=== PATIENT | male | born 1965 | race Caucasian/White ===

== ENCOUNTER 2018-07-30 19:46 | Observation (INO) | payer OTHER ==
[2018-07-30] MEDS ORDERED: NS 1,000 ML IV ONE (19:53)
[2018-07-30 20:01] LABS: PLATELET COUNT 253 10^3/uL (150-400)
--- NOTE | 2018-07-30 20:08 | EDPHY ---
H & P Time Seen by Provider: 07/30/18 19:46 Constitutional: Initial Vital Signs Temperature (C) 36.3 C 07/30/18 19:49 Heart Rate 59 L 07/30/18 19:49 Respiratory Rate 18 07/30/18 19:49 Blood Pressure 115/78 07/30/18 19:49 O2 Sat (%) 96 07/30/18 19:49 O2 Delivery Mode Room Air Allergies/Adverse Reactions: No Known Allergies Allergy (Unverified 07/30/18 19:52) Home Medications: Medication Instructions Recorded Advair 100/50 (*) 07/30/18 Proair Hfa 07/30/18 Medical Decision Making Procedures: Procedure: Laceration repair. Verbal consent was obtained from the patient. The 4 cm laceration on the left parieto-occipital region was anesthetized in the usual fashion. The wound was irrigated, draped and explored to its base with a gloved finger. There were no deep structures involved. No tendon injury was identified. The wound was repaired with 8 cookie. The wound repair was simple. The procedure was performed by myself. (Raymon Lopez) ED Course/Re-evaluation: CHIEF COMPLAINT: Cardiac Alert, syncope HISTORY OF PRESENT ILLNESS: The patient is a 53 y/o male with a history of asthma who arrives emergently via EMS as a Cardiac Alert. He reports he had not eaten all day and began to feel mildly lightheaded. He went to [employer] to get food and while standing in line his lightheadedness worsened significantly and he lost consciousness striking his head as he fell. This occurred about 30 minutes prior to arrival here. He was alert and oriented upon EMS arrival, though still lightheaded. He denies chest pain, chest pressure, dyspnea, nausea , vomiting at any point. He exercises regularly including this morning and did not have symptoms at that time. No recent illness or trauma. No history of cardiac disease. REVIEW OF SYSTEMS: A 10 point review of systems was performed and is negative with the exception of the elements mentioned in the history of present illness. PHYSICAL EXAM: HR, BP, O2 Sat, RR. Temp noted General Appearance: Alert, well hydrated, appropriate, pale. Head: Atraumatic without scalp tenderness or obvious injury Eyes: Pupils equal, round, reactive to light and accommodation, EOMI, no trauma , no injection. Nose: Atraumatic, no rhinorrhea, clear. Throat:Mucus membranes moist. Neck: Supple, non-tender, no lymphadenopathy. Respiratory: No retractions, no distress, no wheezes, and no accessory muscle use. Lungs are clear to auscultation bilaterally. Cardiovascular: Regular rate and rhythm, no murmurs, rubs, or gallops. Good capillary refill all extremities. Gastrointestinal: Abdomen is soft, non-tender, non-distended, no masses, no rebound, no guarding, no peritoneal signs. Musculoskeletal: Normal active ROM of all extremities, atraumatic. Neurological: Alert, appropriate, and interactive. The patient has non-focal cranial nerves, motor, sensory, and cerebellar exam. Skin: No rashes, good turgor, no nodules on palpation. PAST MEDICAL HISTORY: Asthma - Advair, albuterol PAST SURGICAL HISTORY: Denies SOCIAL HISTORY: Exercises regularly. Lives in [place]. . DIAGNOSTICS/PROCEDURES/CRITICAL CARE TIME: The 12 lead EKG was interpreted by myself. Sinus mechanism. Diffuse ST elevation. OK depression in inferior leads. See hard copy and/or "tracemaster" electronic copy for interpretation. Head CT: pending at time of shift change. Echocardiogram: Preliminary read is negative. DIFFERENTIAL DIAGNOSIS: The differential diagnosis for the patient's syncope included but was not limited to vasovagal syncope, arrhythmia, dehydration, cardiogenic causes, neurogenic causes, and blood loss. MEDICAL DECISION MAKIN: Met EMS upon arrival and took report. This is a normally healthy and physically active 53 y/o male with a history of asthma who presents as a Cardiac Alert after a syncopal episode this evening. He describes working out this morning with no symptoms, but also not eating much throughout the day. He was lightheaded prior to syncopal episode, which sounds more consistent with vasovagal syncope. He had no chest pain or pressure, dyspnea, or nausea at any point. Plan for EKG, IV, labs, and head CT. EKG shows OK depression in inferior leads and diffuse ST elevation, which could represent pericarditis, but he does not have any chest pain or pressure. 1949: Consulted with Dr. Joshua, firer automatic stoker. Downgraded Cardiac Alert. 1957: Dr. Joshua, firer automatic stoker, at bedside. He's ordered an echocardiogram for further evaluation as well. Normal troponin. Spoke with hospitalist service. Dr. Beyer accepts admission for syncope. Patient care signed out to Dr. Chu at shift change pending head CT and lab results. (Chepe Woods) - Data Points Laboratory Results: Laboratory Results 07/30/18 19:54 07/30/18 19:54 07/30/18 07/30/18 07/30/18 19:54 19:54 19:51 WBC 8.92 10^3/uL 10^3/uL (3.80-9.50) RBC 5.11 10^6/uL 10^6/uL (4.40-6.38) Hgb 15.5 g/dL g/dL (13.7-17.5) Hct 43.8 % % (40.0-51.0) MCV 85.7 fL fL (81.5-99.8) MCH 30.3 pg pg (27.9-34.1) MCHC 35.4 g/dL g/dL (32.4-36.7) RDW 12.0 % % (11.5-15.2) Plt Count 253 10^3/uL 10^3/uL (150-400) MPV 9.7 fL fL (8.7-11.7) Neut % (Auto) 55.0 % % (39.3-74.2) Lymph % (Auto) 35.4 % % (15.0-45.0) [place] % (Auto) 5.9 % % (4.5-13.0) Eos % (Auto) 2.7 % % (0.6-7.6) Baso % (Auto) 0.8 % % (0.3-1.7) Nucleat RBC Rel Count 0.0 % % (0.0-0.2) Absolute Neuts (auto) 4.90 10^3/uL 10^3/uL (1.70-6.50) Absolute Lymphs (auto) 3.16 10^3/uL H 10^3/uL (1.00-3.00) Absolute Monos (auto) 0.53 10^3/uL 10^3/uL (0.30-0.80) Absolute Eos (auto) 0.24 10^3/uL 10^3/uL (0.03-0.40) Absolute Basos (auto) 0.07 10^3/uL 10^3/uL (0.02-0.10) Absolute Nucleated RBC 0.00 10^3/uL 10^3/uL (0-0.01) Immature Gran % 0.2 % % (0.0-1.1) Immature Gran # 0.02 10^3/uL 10^3/uL (0.00-0.10) Sodium 138 mEq/L mEq/L (135-145) Potassium 3.7 mEq/L mEq/L (3.3-5.0) Chloride 103 mEq/L mEq/L (97-110) Carbon Dioxide 24 mEq/l mEq/l (22-31) Anion Gap 11 mEq/L mEq/L (6-14) BUN 20 mg/dL mg/dL (7-23) Creatinine 1.2 mg/dL mg/dL (0.7-1.3) Estimated GFR > 60 Glucose 133 mg/dL H mg/dL (70-100) Calcium 9.5 mg/dL mg/dL (8.5-10.4) POC Troponin I 0.01 ng/mL ng/mL (0.00-0.08) Medications Given: Discontinued Medications Sodium Chloride (Ns) 1,000 mls @ 0 mls/hr IV ONCE ONE PRN Reason: Wide Open Stop: 07/30/18 19:54 Last Admin: 07/30/18 19:54 Dose: 1,000 mls Point of Care Test Results: Chemistry 07/30/18 19:51 POC Troponin I 0.01 ng/mL ng/mL (0.00-0.08) Departure - Departure Disposition: [facility] Inpatient Acute Clinical Impression: Syncope Qualifiers: Syncope type: unspecified Qualified Code(s): R55 - Syncope and collapse Condition: Fair Report Scribed for: Chepe Woods Report Scribed by: Joana Rico Date of Report: 07/30/18 Time of Report: 20:14
--- NOTE | 2018-07-30 20:29 | ECHO ---
[email or web address] [address] [address] Main: [phone] Fax: [email or web address] Echocardiogram Name: BARBARA RODRIGUEZ MR#: [id number] Study Date: 07/30/2018 Study Time: 08:01 PM Date of : 1965 Age: 53 year(s) Height: 185.4 cm (73 in.) Weight: 79.38 kg (175 lb.) BSA: 2.03 m2 Gender: Male Examination: Echo Indication: Cardiac: syncope Image Quality: Contrast: Requested by: Chepe Woods BP: 124 mmHg/80 mmHg Heart Rate: Rhythm: Normal sinus rhythm Indication: Cardiac: syncope Procedure Staff Php Architect: Victorino Santana RDCS Reading Physician: Sylvain Joshua MD Requesting Provider: Conclusions: Normal global systolic LV function. The ejection fraction is estimated to be 65-70 %. The mitral valve is normal in appearance and function. The aortic valve is normal in appearance and function. No pericardial effusion. Measurements: Chambers Valvular Assessment AV/MV Valvular Assessment TV/PV Normal Normal Normal Name Value Range Name Value Range Name Value Range IVSd (2D): 0.9 cm (0.6 cm-1.1 AV Vmax: 1.22 m/s (1 m/s-1.7 TR Vmax: 2.55 mm/s ( - ) cm) m/s) TR PGmax: 26 mmHg ( - ) LVDd (2D): 4.3 cm (4.2 cm-5.9 AV maxP mmHg ( - ) syst. PAP: 31 mmHg ( - ) cm) LVOT Vmax: 1.13 m/s (0.7 m/s-1.1 PV Vmax: 0.65 m/s (0.6 m/s-0.9 LVDs (2D): 2.7 cm (2.1 cm-4 m/s) m/s) cm) MV E Vmax: 0.74 m/s ( - ) PV PGmax: 2 mmHg ( - ) LVPWd (2D): 1.1 cm (0.6 cm-1 MV A Vmax: 0.38 m/s ( - ) cm) MV E/A: 1.95 ( - ) Visual EF: 70 % EF Range: 65-70 % Continued Measurements: Chambers Valvular Assessment AV/MV Valvular Assessment TV/PV Name Value Name Value Name Value LADs Lon.3 cm MV E/E' Septal: 9.00 CVP (est.): 5 mmHg LA Area: 15.9 cm2 MV E/E' Lateral: 5.60 LA Volume: 47 ml LA Volume Index: 23.2 ml/m2 Patient: BARBARA RODRIGUEZ Study Date: 07/30/2018 Page 1 of 2 08:01 PM Findings: Left Ventricle: Normal size left ventricle. No LV hypertrophy. Normal global systolic LV function. The ejection fraction is estimated to be 65-70 %. The ejection fraction is visually estimated to be 70 %. No regional wall motion abnormality. Normal diastolic LV function. Right Ventricle: Normal size right ventricle. Left Atrium: The left atrium is normal in size. Right Atrium: The right atrium is normal in size. Mitral Valve: The mitral valve is normal in appearance and function. Aortic Valve: The aortic valve is normal in appearance and function. Tricuspid Valve: The tricuspid valve is normal in appearance and function. Pulmonic Valve: The pulmonic valve is normal in appearance and function. Aorta: The aorta is normal. Pericardium: No pericardial effusion. (No Signature Object) Patient: BARBARA RODRGIUEZ Study Date: 07/30/2018 Page 2 of 2 08:01 PM [id number]
[2018-07-30] MEDS ORDERED: ALBUTEROL 60 PUFFS/8 GM MDI IH PRN (21:23)
--- NOTE | 2018-07-30 21:47 | PDGENHP ---
History and Physical History and Physical: CC: Syncope today HISTORY: This patient had a full syncope including fall to ground while at a local restaurant. He woke up feeling well this morning and has been feeling well recently. He went to do a vigorous workout at 5:30 a.m. This morning following which he ate a breakfast. After this he went to work for a bit and then played a round of golf walking 18 holes pulling his bag. After this he had a very small snack of a couple of cheese bits and 1 about the rest of his stay. It sounds like he had 3 beers during and after the round of golf. In addition he did take 2 oxycodone tablets for some chronic back pain during the day. Through all this he felt fine. This evening he went in to [facility] and was standing in line waiting to order. He believes he was waiting for nearly 20 min standing in line. While standing in line he began to feel very lightheaded and faint. He squatted down put his hands on his knees and started to feel slightly better but when he stood up he had a full syncope in the left next thing he recalls he was sitting in a chair. Apparently he did bump his head when he fell though he has no headache or neck pain or neurologic symptoms at this time. There were no palpitations angina-like symptoms shortness of breath neurologic symptoms fever symptoms or nausea associated with any of this. 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 All of them had some prodromal symptoms and 1 of them was associated with dehydration. The last syncopal spell was at least 5 years ago. There is no family history of syncope or sudden . The patient himself has no history of cardiac disease and no symptoms in the past other than the syncopes that would potentially suggest cardiac disease. He does exercise vigorously on a regular basis. ROS: A comprehensive 10 system review revealed no other significant findings PAST MEDICAL HISTORY: Multiple orthopedic issues Asthma FAMILY MEDICAL HISTORY: No syncope or sudden SOCIAL HISTORY: No tobacco, no marijuana or street drugs Works full-time MEDICATIONS: The patients list has been reconciled by our clinical pharmacist in the EMR. I have reviewed the list and ordered appropriate medicines. PHYSICAL EXAMINATION: Vital Signs: All stable without fever Baby Formula Mixer: Sinus Examination: General: alert, oriented, good mentation, relaxed Skin: warm, dry, good color, no rash HEENT: normal Neck: no mass or jvd Resps: relaxed Lungs: clear breath sounds Heart: regular, no murmur Abdomen: soft, nondistended, nontender, +BS, no mass Upper Extremities: normal Lower Extremities: no edema, warm No Bleeding or bruising Neurologic: normal speech/language, normal passenger flagman, no focal weakness IV site: looks normal LABORATORY DATA: Normal CBC other than minimal lymphocytosis Unremarkable metabolic panel and troponin other than a glucose 130 RADIOLOGY STUDIES: I reviewed images from a noncontrast CT of the head showing no evidence of intracranial or cranial injury 12 LEAD EKG: EKG was done in the ER, I reviewed the tracing which shows a sinus rhythm normal rate with diffuse concave up ST segment elevation of mild degree; there is intermittently noted a TN depression in lead 2 ECHOCARDIOGRAM: This was done in the ER tonight an read by Cardiology, there is good LV systolic function without wall motion abnormalities no significant valvular abnormalities noted and no pericardial fluid ASSESSMENT: * acute syncope * EKG abnormalities suggestive of the possibility of pericarditis but without obvious symptoms of the same and without findings on echocardiogram * prior history of several episodes of syncope This patient's prior abdominal lightheadedness, multiple precipitating factors including alcohol narcotic lack of fluid lack of food few hours of sleep heavy exercise and standing still in line for a prolonged time, along with his history of multiple vagal sound Ng spells in the past and absence of any cardiac history strongly suggestive of a vagal episode. Because of his EKG abnormalities it was recommended from the ER in by Cardiology that he be watched overnight on cardiac monitoring which we have arranged. As I review his EKG above think the changes are most likely due to significant exercise particularly as his echocardiogram looks good. He does not have symptoms or exam findings or echo findings to suggest pericarditis. PLANS: Watch overnight on cardiac monitor technician As long as there is no arrhythmia or other concerning cardiac events plan on discharging him tomorrow morning I did review with the patient and his preventive measures for recurrent vagal syncope spells in persons who are susceptible as he seems to be I have reviewed the patient's case in detail with Dr. Chepe Woods
--- NOTE | 2018-07-30 22:12 | GCON ---
DATE OF CONSULTATION: 07/30/2018 CHIEF COMPLAINT: Syncope. HISTORY OF PRESENT ILLNESS: This is a 53-year-old male with history of occasional lightheaded spells and asthma who presents to [facility] with complaints of syncope x1 earlier today. The patient indicates t hat he had not eaten all day and was a local [employer], where he started feeling slightly lightheaded. He bent over, but still passed out and ended up resulting in abrasion of his left side of his head. He denies any palpitations or chest pain prior to the episode. Upon arrival to the emergency room, his ECG showed diffuse ST elevations throughout multiple leads, more likely consistent with early re polarization. Again, he denied any chest pain. Troponins were negative x1 set. Blood pressure is c urrently stable. PAST MEDICAL HISTORY: Significant for asthma. HOME MEDICATIONS: Consist of Advair as well as occasional pain medications for back pain. SOCIAL HISTORY: He is . Occasional alcohol use. No drinking. FAMILY HISTORY: Noncontributory for coronary artery disease. REVIEW OF SYSTEMS: The patient currently denies any visual changes. He does have a some left jaw te nderness from his fall. No headache. No throat pain. No neck pain. No oral issues. No chest pain . No back pain. No shortness of breath. No abdominal pain. No lower extremity pain. No upper ext remity weakness. No neurologic deficits. No edema. PHYSICAL EXAM: VITAL SIGNS: The patient is currently afebrile at 96, pulse is currently 110/70, hea rt rate is 72. Respiratory rate 12, sat 95% on room air. HEENT: The pupils are equally, round, ludivina ctive to light. Extraocular movements are intact. CARDIOVASCULAR: Regular rhythm. S1, S2. LUNGS: Clear to auscultation bilaterally. ABDOMEN: Soft, nontender, no guarding. EXTREMITIES: No clubb ing, no cyanosis, no edema. NEUROLOGIC: Alert x3. LABORATORY VALUES: Currently show troponin negative x1 set. ECG shows diffuse minimal ST elevations consistent with early re-pole. ASSESSMENT/PLAN: Sickle cell: At this time, it appears the patient had a combination of no food all day as well as taking pain medications on an empty stomach. This could have resulted in his hypoten sive episode. He has had these episodes 1-2 times in the past. We will continue to monitor on telem etry. Check cardiac echo, but suspect this is most likely orthostatic hypotension with medication ef fect versus vagovagal syncope. We will continue to follow. Thank you for the consultation. /[id number]/MODL
[2018-07-30] MEDS ORDERED: ZOLPIDEM TARTRATE 5 MG TAB PO PRN (22:34)
[2018-07-30] MEDS ORDERED: ONDANSETRON 4 MG/2 ML VIAL IVP PRN (22:34)
[2018-07-30] MEDS ORDERED: ACETAMINOPHEN 325 MG TAB PO PRN (22:34)
[2018-07-30] MEDS ORDERED: NS 1,000 ML IV SCH (22:45)
--- NOTE | 2018-07-31 07:51 | PDCARPN ---
Cardiology Progress Note Chief Complaint: syncope Assessment/Plan: Assessment: syncope Plan: 07/31/18 07:48 episode is most likely related to orthostatic hypotension (not eating plus taking vicodin on empty stomach) echo- NL OK from CV perspective to d/c home today f/u in office next week--can place 30-day monitor on as outpatient Subjective: feels good Reviewed/Discussed With: multidisciplinary team Time Spent with Patient: greater than 25 minutes Time Spent with Patient: Greater than 25 minutes spent on this patients care, greater than 50% of time spent counseling, educating, and coordinating care regarding the above mentioned plan. Objective: Vital Signs (8 Hrs) Temp Pulse Resp BP Pulse Ox 07/31/18 04:00 36.4 C 60 16 126/85 H 95 Intake/Output (24 Hrs) 07/30/18 07/31/18 08/01/18 05:59 05:59 05:59 Intake Total 350 Balance 350 Intake: Oral (ml) 350 Other: Weight 81.4 kg Number of Voids Toilet 2 Result Diagrams: 07/30/18 19:54 07/30/18 19:54 Cardiac Labs: Cardiac Lab Results (72 Hrs) 07/31/18 07/30/18 03:52 22:56 Troponin I < 0.012 < 0.012 - Physical Exam Constitutional: healthy appearing Eyes: PERRL Ears, Nose, Mouth, Throat: moist mucous membranes Cardiovascular: regular rate and rhythm Peripheral Pulses: 1+: femoral (R), femoral (L) Respiratory: clear to auscultate bilat Gastrointestinal: normoactive bowel sounds Genitourinary: no suprapubic tenderness Skin: no rashes Musculoskeletal: no muscular tenderness Neurologic: AAOx3 Psychiatric: cooperative ICD10 Worksheet Patient Problems: Problems Problem Status Onset Syncope Acute
[2018-07-31 08:27] VITALS: BP 141/82
[2018-07-31] MEDS ORDERED: FLUTICASONE/SALMETER 100/50MCG DISKUS IH SCH (09:00)
--- NOTE | 2018-07-31 10:03 | GDS ---
DIAGNOSES: 1. Syncope, likely vasovagal. 2. Reactive airways disease. PROCEDURES DONE: Head CT without contrast, normal. Echocardiogram, normal. Carotid Dopplers, no ev idence of flow limiting stenosis. CONSULTATIONS: Dr. Sylvain Joshua, cardiology. HOSPITAL COURSE: The patient is a 53-year-old who was admitted with syncope. This is felt likely va sovagal. Apparently, he had been playing golf all day, became dehydrated, had been drinking and taki ng some pain medications, after his day. He was at a restaurant waiting in line when he became synco pal. He did have prodromal symptoms consistent with vasovagal syncope. He was monitored overnight o n telemetry. The above procedures were done, and there was no obvious cause. It was thought to be v asovagal. At this time this morning, he is feeling good and wants to go home. CONDITION ON DISCHARGE: Good. Vital signs are stable. DISCHARGE MEDICATIONS: Please see discharge medication form. FOLLOWUP: He will follow up with [facility] in a week. /[id number]/MODL
[2018-07-31] MEDS ORDERED: MELATONIN 3 MG TAB PO SCH (21:00)
--- NOTE | 2018-08-03 13:09 | CPEKG ---
Test Reason : OPEN Blood Pressure : / mmHG Vent. Rate : 060 BPM Atrial Rate : 060 BPM P-R Int : 144 ms QRS Dur : 090 ms QT Int : 419 ms P-R-T Axes : 054 065 042 degrees QTc Int : [address] elevation suggests acute pericarditis Confirmed by Chepe Woods ([id number]) on 08/03/2018 1:09:07 PM Referred By: Confirmed By:Chepe Woods
== END 2018-07-31 10:16 | disposition home or self-care (01) ==
LOC: EDUNIT# → F2W 20:59
PROVIDERS: ADMIT Internal Medicine; ATTEND Internal Medicine
PROC: 0HQ0XZZ Repair Scalp Skin, External Approach (ICD-10-PCS; principal; 2018-07-30)
DX: R55 Syncope and collapse (principal); J45.909 Unspecified asthma, uncomplicated; S01.01XA Laceration without foreign body of scalp, initial encounter; W19.XXXA Unspecified fall, initial encounter
CPT/HCPCS: 12002; 70450; 93005; 93306; 93880; 96360; 99285; G0378; 84484-PO